=== PATIENT | female | born 1965 | race African-American/Black ===

== ENCOUNTER 2025-02-25 13:49 | Outpatient (CLI) | payer OTHER, SELFPAY ==
--- NOTE | 2025-02-25 14:30 | NEURO_ITS ---
Impression: # Known diabetic complains of balance difficulties. ? # Severe Neuropathy with neurogenic changes on Needle/ EMG exam. Nerve Conduction Studies ?Stim Site NR Peak (ms) P-T Amp (?V) Site1 Site2 Delta-P (ms) Dist (cm) Wai (m/s) Left Sup Fibular Anti Sensory (Ant Lat Mall)??? NO RESPONSE 14 cm NR 14 cm Ant Lat Mall 16.0 Right Sup Fibular Anti Sensory (Ant Lat Mall) 14 cm ? 1.0 9.5 14 cm Ant Lat Mall 1.0 16.0 160 Right Sural Anti Sensory (Lat Mall)??? NO RESPONSE Calf NR Calf Lat Mall 16.0 ?Stim Site NR Onset (ms) O-P Amp (mV) Site1 Site2 Delta-0 (ms) Dist (cm) Wai (m/s) Left Peroneal Motor (Vastus Med)??? NO RESPONSE Ankle NR Popit Ankle 0.0 Popit NR Right Peroneal Motor (Vastus Med) Ankle ? 4.5 0.4 Popit Ankle 12.1 41.0 34 Popit ? 16.6 0.1 Left Tibial Motor (Abd Gray Brev)??? NO RESPONSE Ankle NR Knee Ankle 0.0 Knee NR Right Tibial Motor (Abd Gray Brev)??? NO RESPONSE Ankle NR F Wave Studies ?NR F-Lat (ms) L-R F-Lat (ms) Left Peroneal (Mrkrs) (EDB)??? NO RESPONSE NR Right Peroneal (Mrkrs) (EDB)??? DISPERSED RESPONSE NR Left Tibial (Mrkrs) (Abd Hallucis)??? NO RESPONSE NR Right Tibial (Mrkrs) (Abd Hallucis)??? DISPERSED RESPONSE NR Electromyography ?Side Muscle Nerve Root Ins Act Fibs Amp Dur Recrt Comment Right AntTibialis Dp Br Fibular L4-5 Nml Nml Decr >12ms +3 Left AntTibialis Dp Br Fibular L4-5 Nml Nml Decr >12ms +3 Right Ext Dig Brev Dp Br Fibular L5, S1 Nml Nml Decr >12ms +4 Left Ext Dig Brev Dp Br Fibular L5, S1 Nml Nml Decr >12ms +4 Right Fibularis Long Sup Br Fibular L5-S1 Nml Nml Decr >12ms +3 Left Fibularis Long Sup Br Fibular L5-S1 Nml Nml Decr >12ms +3 Left Flex Dig Long Tibial L5-S2 Nml Nml Decr >12ms +3 Right Flex Dig Long Tibial L5-S2 Nml Nml Decr >12ms +3 Left Gastroc Tibial S1-2 Nml Nml Decr >12ms +3 Right Gastroc Tibial S1-2 Nml Nml Decr >12ms +3
--- OUTSIDE RECORDS SUMMARY | 2025-02-25 16:23 | XMS_ITS | Clinical Summary ---
Author Organization [facility] Address [address] [place] [address] Care Team Providers Care Timber Hewer Name Role Phone Unavailable Primary Care Provider Unavailabl e Source Comments [facility],non-owned Affiliates and Associated Physician Practices is amultiple site organization consisting of ambulatory clinics and hospital sitesin [place], [place], [place] and [place]. This disclosure is being madepursuant to the Care Everywhere program and may not contain all information available regarding this patient. Last updated 17.[employer] Allergies No known active allergies Medications * Be aware that medications may not be up to date on this document. Alwaysverify current medications with the patient. Blood Glucose Monitoring Suppl (Blood Glucose Monitor System) w/Device KITIndications :Diabetes Mellitus Use 1 Each as directed Reasons: Diabetes 1 Each 10/04/2024 11:12 AM CDT 5 Active blood glucose test stripIndicatio ns:Diabetes Mellitus Use 1 (one) strip 3 times daily Reasons: Diabetes 100 strip 1 10/04/2024 11:12 AM CDT 5 Active lancetsIndicat ions:Diabetes Mellitus Use 1 (one) Each 3 times daily Reasons: Diabetes 100 Each 1 10/04/2024 11:12 AM CDT 5 Active Insulin Pen Needle 32G X 4 MM MISCIndication s:Diabetes Mellitus Use 1 Each 4 times daily Reasons: Diabetes 100 Each 1 10/04/2024 11:12 AM CDT 5 Active aspirin (Aspirin) 81 MG chew tablet Take 1 (one) tablet by mouth once daily (chew and swallow) 30 tablet 10/04/2024 11:12 AM CDT 5 Active insulin glargine (Lantus/Semgle e) 100 units/mL pen Inject 4 (four) Units subcutaneously at bedtime 15 mL 10/04/2024 11:12 AM CDT 5 Active metFORMIN (Glucophage) 500 MG tablet Take 1 (one) tablet by mouth once daily 30 tablet 10/04/2024 11:12 AM CDT 5 Active rosuvastatin (Crestor) 40 MG tablet Take 1 (one) tablet by mouth once daily 30 tablet 10/04/2024 11:12 AM CDT 5 Active losartan (Cozaar) 25 MG tablet Take 1 (one) tablet by mouth once daily 30 tablet 10/04/2024 11:12 AM CDT 5 Active Active Problems Problem Noted Date Diagnosed Date Altered mental status, unspe cified altered mental status type 09/30/2024 Elevated troponin 09/30/2024 Assessment & Plan (10/04/2024 1:40 PM CDT): -etiology likely orthostasis since pt reporting decreased PO intake however cardiac etiology can not be ruled out -trops 127 > 251 > 2,000 > 2,345 > 2,337 - Echo: EF 54%, Severe LVH, Grade 1 DD, Bubble study negative PLAN: - Cardiology consulted, [facility] on 10/03 - no lesions - ASA 81mg started - Continue Rosuvastatin - fall precautions - PT/OT Assessment & Plan (10/03/2024 3:16 PM CDT): -etiology likely orthostasis since pt reporting decreased PO intake however cardiac etiology can not be ruled out -trops 127 > 251 > 2,000 > 2,345 > 2,337 - Echo: EF 54%, Severe LVH, Grade 1 DD, Bubble study negative PLAN: - Cardiology consulted, [facility] on 10/03 - ASA 81mg started - Coreg 6.25 BID - telemetry - fall precautions - PT/OT Assessment & Plan (10/02/2024 1:52 PM CDT): -etiology likely orthostasis since pt reporting decreased PO intake however cardiac etiology can not be ruled out -trops 127 > 251 > 2,000 > 2,345 > 2,337 - Echo: EF 54%, Severe LVH, Grade 1 DD, Bubble study negative PLAN: - Trend trop to peak, next at 7pm - Cardiology consulted, possible cath in morning - ASA 81mg started, load aspirin and start heparin drip if next trop elevated - telemetry - fall precautions - PT/OT Assessment & Plan (10/01/2024 4:13 PM CDT): -etiology likely orthostasis since pt reporting decreased PO intake however cardiac etiology can not be ruled out -trops 127 > 251 > 2,000 > 2,345 > - Echo: EF 54%, Severe LVH, Grade 1 DD, Bubble study negative PLAN: - Trend trop to peak, next at 7pm - Cardiology consulted, possible cath in morning - ASA 81mg started, load aspirin and start heparin drip if next trop elevated - telemetry - fall precautions - PT/OT Assessment & Plan (10/01/2024 3:27 AM CDT): -ACS unlikely given patient without chest pain and EKG showing no obvious ischemic findings -trops 127 > 251 PLAN: -telemetry -order lipid panel, A1c -order repeat EKG -trend trops to peak -consult Cards Acute cystitis with hematuria 09/30/2024 Essential hypertension 09/30/2024 Assessment & Plan (10/04/2024 1:40 PM CDT): -noncompliant with antiHTNs for > 1 year -PLAN: -restarted Losartan Assessment & Plan (10/03/2024 7:29 AM CDT): -noncompliant with antiHTNs for > 1 year -PLAN: -restart lisinopril once GEORGES resolves Assessment & Plan (10/02/2024 7:52 AM CDT): -noncompliant with antiHTNs for > 1 year -PLAN: -restart lisinopril once GEORGES resolves Assessment & Plan (10/01/2024 7:49 AM CDT): -noncompliant with antiHTNs for > 1 year -PLAN: -restart lisinopril once GEORGES resolves Assessment & Plan (09/30/2024 10:32 PM CDT): -noncompliant with antiHTNs for > 1 year -PLAN: -restart lisinopril once GEORGES resolves Slurred speech 09/30/2024 Assessment & Plan (10/04/2024 10:00 AM CDT): -per family onset 1.5 years; appears largely resolved on my evaluation. May also be related to episodes of hyperglycemia in setting of uncontrolled diabetes -CT head negative PLAN: -follow up with PCP Assessment & Plan (10/03/2024 7:29 AM CDT): -per family onset 1.5 years; appears largely resolved on my evaluation. May also be related to episodes of hyperglycemia in setting of uncontrolled diabetes -CT head negative PLAN: -follow up with PCP Assessment & Plan (10/02/2024 7:52 AM CDT): -per family onset 1.5 years; appears largely resolved on my evaluation. May also be related to episodes of hyperglycemia in setting of uncontrolled diabetes -CT head negative PLAN: -follow up with PCP Assessment & Plan (10/01/2024 7:49 AM CDT): -per family onset 1.5 years; appears largely resolved on my evaluation. May also be related to episodes of hyperglycemia in setting of uncontrolled diabetes -CT head negative PLAN: -follow up with PCP Assessment & Plan (09/30/2024 11:33 PM CDT): -per family onset 1.5 years; appears largely resolved on my evaluation. May also be related to episodes of hyperglycemia in setting of uncontrolled diabetes -CT head negative PLAN: -follow up with PCP Diabetes mellitus type 2, noninsulin dependent 0 09/30/2024 Assessment & Plan (10/04/2024 1:40 PM CDT): -reports noncompliant with home meds for > 1 year -no A1c on file -home med: Xigduo 5-1000mg -A1c 13.4% PLAN: -Will likely need discharged on long-acting and PO medications -start low dose (0-6 units) SSI TID AC -Will add 4U glargine at bedtime Assessment & Plan (10/03/2024 7:29 AM CDT): -reports noncompliant with home meds for > 1 year -no A1c on file -home med: Xigduo 5-1000mg -A1c 13.4% PLAN: -Will likely need discharged on long-acting and PO medications -start low dose (0-6 units) SSI TID AC -Will add 4U glargine once not NPO Assessment & Plan (10/02/2024 7:52 AM CDT): -reports noncompliant with home meds for > 1 year -no A1c on file -home med: Xigduo 5-1000mg -A1c 13.4% PLAN: -Will likely need discharged on long-acting and PO medications -start low dose (0-6 units) SSI TID AC -Will add 4U glargine once not NPO Assessment & Plan (10/01/2024 4:13 PM CDT): -reports noncompliant with home meds for > 1 year -no A1c on file -home med: Xigduo 5-1000mg -A1c 13.4% PLAN: -Will likely need discharged on long-acting and PO medications -start low dose (0-6 units) SSI TID AC -Will add 4U glargine once not NPO Assessment & Plan (09/30/2024 11:33 PM CDT): -reports noncompliant with home meds for > 1 year -no A1c on file -home med: Xigduo 5-1000mg PLAN: -order A1c -start low dose (0-6 units) SSI TID AC Acute kidney injury 09/30/2024 Assessment & Plan (10/04/2024 1:40 PM CDT): -likely related to prerenal etiology since patient admits to decreased PO intake lately -Cr 1.89 (baseline unknown) PLAN: -given LR bolus in ED, gentle IVF on 10/02 in preparation for C -trend renal panel at follow up Assessment & Plan (10/03/2024 7:29 AM CDT): -likely related to prerenal etiology since patient admits to decreased PO intake lately -Cr 1.89 (baseline unknown) PLAN: -given LR bolus in ED, gentle IVF on 10/02 in preparation for C -trend renal panel Assessment & Plan (10/02/2024 1:52 PM CDT): -likely related to prerenal etiology since patient admits to decreased PO intake lately -Cr 1.89 (baseline unknown) PLAN: -given LR bolus in ED, gentle IVF on 10/02 in preparation for C -trend renal panel Assessment & Plan (10/01/2024 7:49 AM CDT): -likely related to prerenal etiology since patient admits to decreased PO intake lately -Cr 1.89 (baseline unknown) PLAN: -given LR bolus in ED -trend renal panel Assessment & Plan (09/30/2024 10:45 PM CDT): -likely related to prerenal etiology since patient admits to decreased PO intake lately -Cr 1.89 (baseline unknown) PLAN: -given LR bolus in ED -trend renal panel Frequent falls 09/30/2024 Assessment & Plan (10/04/2024 1:40 PM CDT): -etiology unclear; possibly related to deconditioning vs orthostatsis vs cardiac -reports 3-4 falls this year Assessment & Plan (10/03/2024 7:29 AM CDT): -etiology unclear; possibly related to deconditioning vs orthostatsis vs cardiac -reports 3-4 falls this year PLAN: -fall precautions -PT/OT Assessment & Plan (10/02/2024 7:52 AM CDT): -etiology unclear; possibly related to deconditioning vs orthostatsis vs cardiac -reports 3-4 falls this year PLAN: -fall precautions -PT/OT Assessment & Plan (10/01/2024 7:49 AM CDT): -etiology unclear; possibly related to deconditioning vs orthostatsis vs cardiac -reports 3-4 falls this year PLAN: -fall precautions -PT/OT Assessment & Plan (10/01/2024 3:27 AM CDT): -etiology unclear; possibly related to deconditioning vs orthostatsis vs cardiac -reports 3-4 falls this year PLAN: -fall precautions -PT/OT Near syncope 09/30/2024 Assessment & Plan (10/04/2024 1:40 PM CDT): -etiology likely orthostasis since pt reporting decreased PO intake however cardiac etiology can not be ruled out -trops 127 > 251 > 2,000 > 2,345 > 2,337 - Echo: EF 54%, Severe LVH, Grade 1 DD, Bubble study negative PLAN: - Cardiology consulted, [facility] on 10/03 - no lesions - ASA 81mg started - Continue Rosuvastatin - fall precautions - PT/OT Assessment & Plan (10/03/2024 3:16 PM CDT): -etiology likely orthostasis since pt reporting decreased PO intake however cardiac etiology can not be ruled out -trops 127 > 251 > 2,000 > 2,345 > 2,337 - Echo: EF 54%, Severe LVH, Grade 1 DD, Bubble study negative PLAN: - Cardiology consulted, [facility] on 10/03 - ASA 81mg started - Coreg 6.25 BID - telemetry - fall precautions - PT/OT Assessment & Plan (10/02/2024 1:52 PM CDT): -etiology likely orthostasis since pt reporting decreased PO intake however cardiac etiology can not be ruled out -trops 127 > 251 > 2,000 > 2,345 > 2,337 - Echo: EF 54%, Severe LVH, Grade 1 DD, Bubble study negative PLAN: - Trend trop to peak, next at 7pm - Cardiology consulted, possible cath in morning - ASA 81mg started, load aspirin and start heparin drip if next trop elevated - telemetry - fall precautions - PT/OT Assessment & Plan (10/01/2024 4:13 PM CDT): -etiology likely orthostasis since pt reporting decreased PO intake however cardiac etiology can not be ruled out -trops 127 > 251 > 2,000 > 2,345 > - Echo: EF 54%, Severe LVH, Grade 1 DD, Bubble study negative PLAN: - Trend trop to peak, next at 7pm - Cardiology consulted, possible cath in morning - ASA 81mg started, load aspirin and start heparin drip if next trop elevated - telemetry - fall precautions - PT/OT Assessment & Plan (09/30/2024 11:33 PM CDT): -etiology likely orthostasis since pt reporting decreased PO intake however cardiac etiology can not be ruled out PLAN: -order orthostatics -given IV bolus -order continuous IV fluids x 12 hours -telemetry -fall precautions -order TTE with bubble -PT/OT Hyperglycemia 09/30/2024 Assessment & Plan (10/04/2024 1:40 PM CDT): -reports noncompliant with home meds for > 1 year -no A1c on file -home med: Xigduo 5-1000mg -A1c 13.4% PLAN: -Will likely need discharged on long-acting and PO medications -start low dose (0-6 units) SSI TID AC -Will add 4U glargine at bedtime Assessment & Plan (10/03/2024 7:29 AM CDT): -reports noncompliant with home meds for > 1 year -no A1c on file -home med: Xigduo 5-1000mg -A1c 13.4% PLAN: -Will likely need discharged on long-acting and PO medications -start low dose (0-6 units) SSI TID AC -Will add 4U glargine once not NPO Assessment & Plan (10/02/2024 7:52 AM CDT): -reports noncompliant with home meds for > 1 year -no A1c on file -home med: Xigduo 5-1000mg -A1c 13.4% PLAN: -Will likely need discharged on long-acting and PO medications -start low dose (0-6 units) SSI TID AC -Will add 4U glargine once not NPO Assessment & Plan (10/01/2024 4:13 PM CDT): -reports noncompliant with home meds for > 1 year -no A1c on file -home med: Xigduo 5-1000mg -A1c 13.4% PLAN: -Will likely need discharged on long-acting and PO medications -start low dose (0-6 units) SSI TID AC -Will add 4U glargine once not NPO Assessment & Plan (09/30/2024 11:33 PM CDT): -reports noncompliant with home meds for > 1 year -no A1c on file -home med: Xigduo 5-1000mg PLAN: -order A1c -start low dose (0-6 units) SSI TID AC HLD (hyperlipidemia) 09/30/2024 Assessment & Plan (10/04/2024 10:00 AM CDT): - Switched atorvastatin to Rosuvastatin per Cardiology Assessment & Plan (10/03/2024 7:29 AM CDT): - Switched atorvastatin to Rosuvastatin per Cardiology Assessment & Plan (10/02/2024 1:52 PM CDT): - Switched atorvastatin to Rosuvastatin per Cardiology Assessment & Plan (10/01/2024 7:49 AM CDT): -restart statin at 40mg Assessment & Plan (09/30/2024 10:48 PM CDT): -restart statin Social History Tobacco Use Types Packs/Day Years Used Date Smoking Tobacco: Never Smokeless Tobacco: Never Tobacco Cessation:Counseling Given: Not Answered Alcohol Use Standard Drinks/Week Comments Not Currently 0 (1 standard drink = 0.6 oz pur e alcohol) AUDIT-C Answer Date Recorded Q1: How often do you have a drink containing alc ohol? Monthly or less 10/04/2024 Q2: How many drinks containi ng alcohol do you have on a typical day when you are drinking? 1 or 2 10/04/2024 Q3: How often do you have si x or more drinks on one occasion? Never 10/04/2024 Comments No Sex and Gender Information Value Date Recorded Sex Assigned at Not on file Legal Sex Female 6:35 PM CDT Gender Identity Not on file Sexual Orientation Not on file Last Filed Vital Signs Vital Sign Reading Time Taken Comments Blood Pressure 145/83 10/04/2024 11:30 AM CDT Pulse 81 10/04/2024 11:30 AM CDT Temperature 36.3 C (97.4 F) 10/04/2024 11:30 AM CDT Respiratory Rate 18 10/04/2024 11:30 AM CDT Oxygen Saturation 100% 10/04/2024 11:30 AM CDT Inhaled Oxygen Concentration - - Weight 70.8 kg (156 lb) 10/01/2024 7:37 AM CDT Height 162.6 cm (5' 4) 10/01/2024 7:37 AM CDT Body Mass Index 26.78 10/01/2024 7:37 AM CDT Plan of Treatment Health Maintenance Due Date Last Done Comments COLOGUARD (AGES 45-75) - COLON CA SCREENING 1966 COLON MONITORING 1966 COLONOSCOPY - COLON CA SCREENING 1966 CT COLONOGRAPHY - COLON CA SCREENING 1966 Colorectal Cancer Screening 1966 FIT - COLON CA SCREENING 1966 FLEX SIG - COLON CA SCREENING 1966 MAMMOGRAM 1966 HIV SCREENING 1981 HEPATITIS C SCREENING 02/03/1984 DTAP/TDAP/TD VACCINES (1 - Tdap) 1985 HEPATITIS B VACCINE (1 of 3 - 19+ 3-dose series) 1985 PNEUMOCOCCAL VACCINE 50+ (1 of 2 - PCV) 1985 PAP SMEAR 1987 ZOSTER VACCINE (1 of 2) 02/08/2016 DEPRESSION SCREENING 03/12/2024 DIABETES - URINE PROTEIN SCREENING 03/12/2024 DIABETES RETINOPATHY SCREENING 09/30/2024 DIABETES-FOOT EXAM WITH MONOFILAMENT 09/30/2024 COVID-19 VACCINE ( season) 2024 INFLUENZA VACCINE (#1) 2024 DIABETES-HGB A1C 04/02/2025 09/30/2024 DIABETES-SERUM CREATININE 10/04/20252024, 10/03/2024, 10/02/2024, Additional history exists HIB VACCINE Aged Out No longer eligi ble based on patient's age to complete this topic HPV VACCINE Aged Out No longer eligi ble based on patient's age to complete this topic MENINGOCOCCAL (Group B) VACCINE SHARED DECISION-MAKING Aged Out No longer eligible based on patient's age to complete this topic MENINGOCOCCAL GROUPS A/C/Y/W VACCINE Aged Out No longer eligible based on patient's age to complete this topic Procedures Procedure Name Priority Date/Time Associated Diagnosis Comments RENAL FUNCTION PANEL AM Draw 10/04/2024 5:52 AM CDT Altered mental status, unspecified altered mental status type HEMOGLOBIN A1C CELSA 09/30/2024 9:56 PM CDT Altered mental status, unspecified altered mental status type from Last 3 Months or Most Recently Relevant to Health Maintenance Results * (ABNORMAL) RENAL FUNCTION PANEL (10/04/2024 5:52 AM CDT) BUN 16 7 - 26 mg/dL 10/04/2024 6:56 AM [facility] Creatinine 1.34(H) 0.56 - 0.96 mg/dL 10/04/2024 6:56 AM [facility] Sodium 140 136 - 145 mmol/L 10/04/2024 6:56 AM [facility] Potassium 4.1 3.5 - 4.5 mmol/L 10/04/2024 6:56 AM [facility] Chloride 108(H) 98 - 107 mmol/L 10/04/2024 6:56 AM [facility] CO2 23 22 - 29 mmol/L 10/04/2024 6:56 AM [facility] Glucose 174(H) 70 - 99 mg/dL 10/04/2024 6:56 AM [facility] Albumin 2.5(L) 3.4 - 5.0 g/dL 10/04/2024 6:56 AM [facility] Calcium 8.3(L) 8.4 - 10.2 mg/dL 10/04/2024 6:56 AM [facility] Phosphorus 3.2 2.9 - 5.1 mg/dL 10/04/2024 6:56 AM [facility] Anion Gap 9 6 - 16 10/04/2024 6:56 AM [facility] BUN/Creatinine Ratio 12 7 - 23 10/04/2024 6:56 AM [facility] Osmolality Calculated 295 275 - 295 mOsm/kg 10/04/2024 6:56 AM [facility] eGFR by CKD-EPI 46(L) >=90 mL/min/1.7 3 m2 10/04/2024 6:56 AM [facility] Comment:Estimated Glomerular Filtration Rate (eGFR) calculated using the CKD-EPI Creatinine Equation (2020), per the National Kidney Foundation and [place] Society of Nephrology recommendations. Blood BLOOD SPECIMEN / Unknown Lab Venipuncture / Unknown 10/04/2024 5:52 AM CDT 10/04/2024 6:23 AM CDT Ramos Morrison PA-C LAB - CHEMISTRY ORDERABLE S Final Result [address] [address], [facility] [phone] * (ABNORMAL) HEMOGLOBIN A1C (09/30/2024 9:56 PM CDT) Hemoglobin A1c 13.4(H) <=5.6 % 10/01/2024 8:42 AM [facility] Estimated Average Glucose 338 mg/dL 10/01/2024 8:42 AM [facility] Comment: HbA1c Interpretation: Normal : < 5.7% Pre-diabetes: 5.7-6.4% Diabetes: Equal to or greater than 6.5% Test results diagnostic of diabetes should be repeated for confirmation. Treatment target values recommended by ADA and other clinical organizations should be used to evaluate metabolic control in patients. Reference: [place] Diabetes Association, Standards of Care in Diabetes -2020 In patients 70 years and older consider HbA1c target range of 7.0-7.5% (Reference: Raymundo Arroyo et al. MINNIEDA. 2012) The Sebia assay for the measurement of HbA1c is a National Glycohemoglobin Standardization Program (NGSP) certified method. Blood BLOOD SPECIMEN / Unknown Venipuncture / Unknown 09/30/2024 9:56 PM CDT 09/30/2024 10:09 PM CDT Ramos Morrison PA-C LAB - CHEMISTRY ORDERABLE S Final Result [facility] [address] [place] [address], [facility] [phone] from Last 3 Months or Most Recently Relevant to Health Maintenance Insurance [employer] [facility] Address: [facility] [id number] [place] [address] Advance Directives * Full Code (Latest Code Status on File) Date Activated Date Inactivated Comments 09/30/2024 9:53 PM 10/04/2024 4:25 PM
--- OUTSIDE RECORDS SUMMARY | 2025-02-25 16:23 | XMS_ITS | Data Portability ---
Author Organization [facility], [employer] Address [address] [address] Assessment Encounter Date Assessment Date Assessment LastModified by Organization Details LastModified Time 12/17/2018 12/17/2018 Patient presente d for follow up. Studies ordered as below. Discussed plan with patient/caregiver , who expressed understanding. Follow up as noted below. [email or web address] Not available 12/17/2018 17:38:37 05/14/2019 05/14/2019 Patient presente d for follow up. Studies ordered as below. Discussed plan with patient/caregiver , who expressed understanding. Follow up as noted below. [email or web address] Not available 05/14/2019 18:11:56 05/19/2020 05/19/2020 Recommended healthy nutrition, including a diet rich in fruits and vegetables, minimizing simple carbohydrates, salt, and saturated fats. Encouraged regular cardiovascular exercise such as walking at least 30 minutes daily, 5 times per week. Emphasized preventive health measures and educated pt on fall prevention and community-based lifestyle interventions to help reduce health risks and promote healthy living. Not available 05/19/2020 17:34:29 10/14/2020 10/14/2020 Recommended healthy nutrition, including a diet rich in fruits and vegetables, minimizing simple carbohydrates, salt, and saturated fats. Encouraged regular cardiovascular exercise such as walking at least 30 minutes daily, 5 times per week. Emphasized preventive health measures and educated pt on fall prevention and community-based lifestyle interventions to help reduce health risks and promote healthy living. Not available 10/14/2020 17:27:41 Plan of Treatment Reminders Order Date Submit Date Provider Last Modified By Organization Details Last Modified Time Details Appointments None recorded. Lab [facility], [facility], [address], [address], [place], [address], 1 08:45:12 CK (creatine kinase), total, serum [facility], [address], [address], [place], [address], 1 08:45:11 microalbum in/creatin ine, mass ratio, urine 2020 [email or web address] Not available 08:16:31 HbA1c (hemoglobi n A1c), blood 2020 [facility], [address], [address], [place], [address], 1 08:16:31 C[facility], serum or [facility] [address], [address], [place], [address], 1 08:45:11 lipid panel, serum 2020 [facility] Not available 15:49:42 CK (creatine kinase), total, serum 2020 [facility] Not available 1 15:49:41 microalbum in/creatin ine, mass ratio, urine 2020 [facility] Not available 15:49:42 hemoglobin A1c, QN, blood 2020 [facility] Not available 15:49:40 CMP, serum or plasma 2020 [facility] Not available 15:49:41 hepatitis C Ab, serum 03/10/ 2021 03/10/2 021 [facility] Not available 1 15:49:40 lipid panel, serum 2019 020 [email or web address] 1 [facility], [address], [address], [place], [address], 0 11:35:19 CK (creatine kinase), total, serum 2019 020 [email or web address] 1 [facility], [address], [address], [place], [address], 0 11:35:19 HbA1c (hemoglobi n A1c), blood 2019 020 [email or web address] 1 [facility], [address], [address], [place], [address], 0 11:35:19 CMP, serum or plasma 2019 020 [email or web address] 1 [facility], [address], [address], [place], [address], 0 11:35:19 microalbum in/creatin ine, mass ratio, urine - -- with copy of report to Ophthalmol ogist Dr. Jason Barraza 2019 020 [email or web address] 1 [facility], [address], [address], [place], [address], 0 11:35:19 lipid panel, serum 2018 019 [email or web address] [facility], [address], [address], [place], [address], 9 08:47:28 HbA1c (hemoglobi n A1c), blood 2018 019 [email or web address] [facility], [address], [address], [place], [address], 9 08:47:28 CMP, serum or plasma 2018 019 lcallison [facility], [address], [address], [place], [address], 9 08:47:28 microalbum in/creatin ine, mass ratio, urine - -- with copy of report to Ophthalmol ogist Dr. Jason Barraza 2018 019 lcallison [facility], [address], [address], [place], [address], 9 08:47:27 lipid panel, blood - -- with copy of report to Ophthalmol ogist Dr. Jason Barraza 2018 019 lcallison [facility], [address], [address], [place], [address], 9 08:53:40 CK (creatine kinase), total, serum - -- with copy of report to Ophthalmol ogist Dr. Jason Barraza 2018 019 lcallison [facility], [address], [address], [place], [address], 9 08:53:40 hemoglobin A1c, QN, blood - -- with copy of report to Ophthalmol ogist Dr. Jason Barraza 2018 019 lcallison [facility], [address], [address], [place], [address], 9 08:53:40 CMP, serum or plasma - -- with copy of report to Ophthalmol ogist Dr. Jason Barraza 2018 019 lcallison [facility], [address], [address], [place], [address], 9 08:53:40 microalbum in/creatin ine, mass ratio, urine - -- with copy of report to Ophthalmol ogist Dr. Jason Barraza 2018 019 [email or web address] [facility], [address], [address], [place], [address], 9 08:53:[address] referral 2020 021 dbjohn Lowery MD, [address], [address], [place], [address], 18:03:42 optometris t referral 2020 021 [email or web address] 1 [facility], [address], [place], [address], 15:04:23 counseling referral 2020 021 1 Sonja Harris [employer]OP[employer], [address], [address], [place], [address], 15:04:[address] referral 2020 021 sebastian Lowery MD, [address], [address], [place], [address], 15:51:12 optometris t referral 2020 021 [facility], [address], [place], [address], 15:51:14 counseling referral 2020 021 sebastian Harris [employer]OP[employer], [address], [address], [place], [address], 15:51:[address] referral 2019 020 calvin Lowery MD, [address], [address], [place], [address], 0 08:47:04 diabetic ophthalmol ogy referral 2019 020 calvin Barraza MD, [address] [facility] , [address], [place], [address], 0 08:47:05 counseling referral 2019 020 calvin Harris [facility], [address], [address], [place], [address], 0 08:47:[address] referral 2018 019 calvin Lowery MD, [address], [address], [place], [address], 9 08:33:02 diabetic ophthalmol ogy referral 2018 019 calvin Barraza MD, [address] [facility] , [address], [place], [address], 9 08:33:03 counseling referral 2018 019 calvin Not available 9 08:33:[address] referral 2018 019 calvin Lowery MD, [address], [address], [place], [address], 9 08:40:28 diabetic ophthalmol ogy referral 2018 019 calvin Barraza MD, [address] [facility] , [address], [place], [address], 9 08:40:29 casino banker referral 2018 019 calvin Todd DPM, [address] [facility], [facility] [address], [place], [address], 9 08:40:30 Procedures None recorded. Surgeries None recorded. Imaging MAMMO, screening, digital, bilateral 2020 021 [facility] [place] [facility] Patient Access Centralized Scheduling, Centralized Scheduling, [address] [place], [address], 1 18:03:48 MAMMO, screening, digital, bilateral 2020 021 [email or web address] Not available 1 17:39:04 electrocar diogram 2020 [place] [facility], [facility], [facility] [place] [address], [place], [address], 1 14:05:26 electrocar diogram 2019 020 [place] [facility], [facility], [facility] [place] [address], [place], [address], 0 08:13:06 MAMMO, screening, digital, bilateral 2019 020 [email or web address] Not available 0 19:04:39 MAMMO, screening, digital, bilateral 2018 019 [email or web address] Not available 9 18:20:57 electrocar diogram 2018 019 [place] [facility], [facility], [facility] [place] [address], [place], [address], 9 12:46:36 XR, foot, 3 or more view - -- Please send copy of report to casino banker Dr. Anthony Todd. 2018 019 [email or web address] Not available 9 09:13:03 Medication Orders rosuvastat in 10 mg tablet 2020 021 [facility], [address] [place] [address], [address], 1 17:55:58 Xigduo XR 5 mg-1,000 mg tablet,ext ended release 2020 [facility], [address] [place], [address], 17:56:00 pioglitazo ne 30 mg tablet 2020 [facility], [address] [place] [address], [address], 17:55:58 Trulicity 0.75 mg/0.5 mL subcutaneo us pen injector 2020 [id number], [address] [place], [place], [id number], 17:55:54 Trulicity 1.5 mg/0.5 mL subcutaneo us pen injector 2020 [facility], [address] [place], [place], [id number], 17:55:55 rosuvastat in 10 mg tablet 2020 [facility], [address] [place] [address], [address], 17:35:16 lisinopril 20 mg tablet [address] [facility], [address] [place] [address], [address], 07:06:44 Xigduo XR 5 mg-1,000 mg tablet,ext ended release 2020 [facility], [address] [place] [address], [address], 17:35:19 pioglitazo ne 30 mg tablet 2020 [facility], [address] [place] [address], [address], 1 03:37:55 rosuvastat in 10 mg tablet 2019 [facility], [address] [place] [address], [address], 0 18:53:25 Xigduo XR 5 mg-1,000 mg tablet,ext ended release 2019 [facility], [address] [place] [address], [address], 0 18:53:27 pioglitazo ne 30 mg tablet 2019 [facility], [address] [place] [address], [address], 0 18:53:30 lisinopril 20 mg tablet [address] [facility], [address] [place] [address], [address], 1 07:06:44 rosuvastat in 10 mg tablet 2018 [facility], [address] [place] [address], [address], 9 18:14:51 Xigduo XR 5 mg-1,000 mg tablet,ext ended release 2018 019 [facility], [address] [place] [address], [address], 9 18:14:48 pioglitazo ne 30 mg tablet 2018 [facility], [address] [place] [address], [address], 9 18:14:58 lisinopril 20 mg tablet [address] [facility], [address] [place] [address], [address], 1 07:06:44 rosuvastat in 10 mg tablet 2018 019 [facility], [address] [place] [address], [address], 9 18:48:00 Xigduo XR 5 mg-1,000 mg tablet,ext ended release 2018 [facility], [address] [place] [address], [address], 9 18:48:01 pioglitazo ne 30 mg tablet 2018 019 [facility], [address] [place] [address], [address], 9 18:48:08 Ozempic 1 mg/dose (2 mg/1.5 mL) subcutaneo us pen injector [address] [facility], [address] [place] [address], [address], 1 17:48:46 citalopram 40 mg tablet 2018 019 [email or web address] [facility], [address] [place] [address], [address], 0 18:40:24 lisinopril 10 mg tablet 2018 019 [email or web address] [facility], [address] [place] [address], [address], 0 18:36:25 Patient TargetsNo targets recorded. Patient Instructions Encounter Date Encounter Id Patient Instructions Last Modified By Organization Details Last Modified Time 04/15/2018 [id number] high cholesterol : care instructions Not available 04/15/2018 18:47:54 advised to lose weight Not available 04/15/2018 18:47:54 type 2 diabetes: care instructions Not available 04/15/2018 18:47:54 learning about mood disorders Not available 04/15/2018 18:47:54 high blood pressure: care instructions Not available 04/15/2018 18:47:54 learning about high blood pressure Not available 04/15/2018 18:47:54 12/17/2018 [id number] high cholesterol : care instructions Not available 12/17/2018 18:14:37 albumin-creatini n e ratio: about this test Not available 12/17/2018 18:14:37 advised to lose weight Not available 12/17/2018 18:14:37 05/14/2019 [id number] high cholesterol : care instructions [email or web address] Not available 05/14/2019 18:53:12 albumin-creatini n e ratio: about this test Not available 05/14/2019 18:53:12 advised to lose weight [email or web address] Not available 05/14/2019 18:53:12 05/19/2020 [id number] high cholesterol : care instructions Not available 05/19/2020 17:35:05 albumin-creatini n e ratio: about this test Not available 05/19/2020 17:35:04 advised to lose weight Not available 05/19/2020 17:35:05 10/14/2020 [id number] high cholesterol : care instructions Not available 10/14/2020 17:55:47 albumin-creatini n e ratio: about this test Not available 10/14/2020 17:55:47 advised to lose weight Not available 10/14/2020 17:55:47 Reason for Referral Duralumin Mechanic Referral for Sc reening for malignant neoplasm of cervix Referring Physician: Mayo Wynne, Internal Medicine, Encounter Date: 04/15/2018 Diabetic Ophthalmology Refer ral for Type 2 diabetes mellitus without complication Referring Physician: Letty Boston, Encounter Date: 04/15/2018 Heel Sewer Referral for Type 2 diabetes mellitus without complication Referring Physician: Letty Boston, Encounter Date: 04/15/2018 Duralumin Mechanic Referral for Sc reening for malignant neoplasm of cervix Referring Physician: Letty Boston, Encounter Date: 12/17/2018 Diabetic Ophthalmology Refer ral for Type 2 diabetes mellitus without complication Referring Physician: Letty Boston, Encounter Date: 12/17/2018 Counseling Referral for Depr essive disorder Referring Physician: Letty Boston, Encounter Date: 12/17/2018 Duralumin Mechanic Referral for Sc reening for malignant neoplasm of cervix Referring Physician: Letty Spring, Encounter Date: 05/14/2019 Diabetic Ophthalmology Refer ral for Type 2 diabetes mellitus without complication Referring Physician: Letty Spring, Encounter Date: 05/14/2019 Counseling Referral for Depr essive disorder Referring Physician: Letty Spring, Encounter Date: 05/14/2019 Duralumin Mechanic Referral for Sc reening for malignant neoplasm of cervix Referring Physician: Letty Boston, Encounter Date: 05/19/2020 Counseling Referral for Depr essive disorder Referring Physician: Letty Boston, Encounter Date: 05/19/2020 Clinical Biochemical Geneticist Referral for Typ e 2 diabetes mellitus without complication Referring Physician: Letty Boston, Encounter Date: 05/19/2020 Duralumin Mechanic Referral for Sc reening for malignant neoplasm of cervix Referring Physician: Letty Boston, Encounter Date: 10/14/2020 Counseling Referral for Depr essive disorder Referring Physician: Letty Boston, Encounter Date: 10/14/2020 Clinical Biochemical Geneticist Referral for Typ e 2 diabetes mellitus without complication Referring Physician: Letty Boston, Encounter Date: 10/14/2020 Results Created Date Observation Date Name Description Value Unit Range Abnormal Flag Note LastModifiedBy Organization Detail LastModifiedTime 03/16/1903/18/2018 lipid panel , serum cholesterol, total 291 mg/dL <200 high Not Available [facility] [address] [address] [place], [address], 03/18/2018 14:25:29 03/16/1903/18/2018 lipid panel , serum HDL cholesterol 51 mg/dL >50 normal Not Available [facility] [address] [place], [address], 03/18/2018 14:25:29 03/16/1903/18/2018 lipid panel , serum triglyceride s 119 mg/dL <150 normal Not Available [facility] [place] [address] [place], [address], 03/18/2018 14:25:29 03/16/1903/18/2018 lipid panel , serum LDL-choleste rol 214 mg/dL _(carlos manuel c) high LDL-C level s > or = 190 mg/dL may indic ate famil ial hyper angeline stero lemia (FH). Clini carlos manuel asses sment and measu remen t of blood lipid level s shoul d be consi dered for all first degre e relat mookie of patie nts with an FH diagn osis. For quest ions about testi ng for famil ial hyper angeline stero lemia , pleas e call [facility] at 1.866 .GENE .INFO . Coy pfeiffer T, et al. J Natio nal Lipid Assoc iatio n Recom menda tions for Patie nt-Ce ntere d Manag ement of Dysli pidem ia: Part 1 Journ al of Clini carlos manuel Lipid ology 2015; 9(2), 129-1 69. Refer ence range : <100 Jakob able range <100 mg/dL for prima ry preve ntion ; <70 mg/dL for patie nts with CHD or diabe tic patie nts with > or = 2 CHD risk facto rs. LDL-C is now calcu lated using the [facility] kins adan ross, which is a valid ated novel stephon torre than the Fried radha abelardo ion in the estim ation of LDL-C . Arlene ross SS et al. PREM. 2013; 310(1 9): 2061- 2068 (http ://ed ucati on.Qu estDi Communicado. com/f aq/FA Q164) Not Available [facility] [address] [address], [place], [address], 03/18/2018 14:25:29 03/16/1903/18/2018 lipid panel , serum chol/HDLC ratio 5.7 (calc ) <5.0 high Not Available [facility] [address] [address] [address], [place], [address], 03/18/2018 14:25:29 03/16/1903/18/2018 lipid panel , serum non HDL cholesterol 240 mg/dL _(carlos manuel c) <130 high Non-H DL level > or = 220 is very high and may indic ate debra ic famil ial hyper angeline stero lemia (FH). Clini carlos manuel asses sment and measu remen t of blood lipid level s shoul d be consi dered for all first -degr ee relat mookie of patie nts with an FH diagn osis. For patie nts with diabe allen plus 1 major ASCVD risk facto r, treat ing to a non-H DL-C goal of <100 mg/dL (LDL- C of <70 mg/dL ) is consi dered a thera peuti c optio n. Not Available [facility] [address] [address], [place], [address], 03/18/2018 14:25:29 03/16/1903/18/2018 CMP, serum or plasm a glucose 245 mg/dL 65-99 high Fasti ng refer ence inter jasmine For someo ne witho ut known diabe allen, a gluco se value >125 mg/dL indic ates that they may have diabe allen and this shoul d be confi rmed with a follo w-up test. Not Available [address], [address], 03/18/2018 14:25:29 03/16/1903/18/2018 CMP, serum or plasm a urea nitrogen (BUN) 12 mg/dL 7-25 normal Not Available [facility] [address], [address], 03/18/2018 14:25:29 03/16/1903/18/2018 CMP, serum or plasm a creatinine 0.97 mg/dL 0.50-1 .05 normal For patie nts >49 years of age, the refer ence limit for Creat inine is appro ximat deborah 13% highe r for peopl e ident ified as Afric an-Am rigoberto n. Not Available [address], [address], 03/18/2018 14:25:29 03/16/1903/18/2018 CMP, serum or plasm a eGFR non-afr. burkinan 67 mL/mi n/1.7 3m2 > or = 60 normal Not Available [address], [address], 03/18/2018 14:25:29 03/16/1903/18/2018 CMP, serum or plasm a eGFR 78 mL/mi n/1.7 3m2 > or = 60 normal Not Available [facility] [address], [address], 03/18/2018 14:25:29 03/16/1903/18/2018 CMP, serum or plasm a BUN/creatini ne ratio NOT APPLIC ABLE (calc ) 6-22 Not Available [facility] [address], [address], 03/18/2018 14:25:29 03/16/1903/18/2018 CMP, serum or plasm a sodium 138 mmol/ L 135-14 6 normal Not Available [address], [address], 03/18/2018 14:25:29 03/16/1903/18/2018 CMP, serum or plasm a potassium 4.2 mmol/ L 3.5-5. 3 normal Not Available [address], [address], 03/18/2018 14:25:29 03/16/1903/18/2018 CMP, serum or plasm a chloride 102 mmol/ L 98-110 normal Not Available [address], [address], 03/18/2018 14:25:29 03/16/1903/18/2018 CMP, serum or plasm a carbon dioxide 27 mmol/ L 20-32 normal Not Available [address], [address], 03/18/2018 14:25:29 03/16/1903/18/2018 CMP, serum or plasm a calcium 9.4 mg/dL 8.6-10 .4 normal Not Available [address], [address], 03/18/2018 14:25:29 03/16/1903/18/2018 CMP, serum or plasm a protein, total 7.3 g/dL 6.1-8. 1 normal Not Available [address], [address], 03/18/2018 14:25:29 03/16/1903/18/2018 CMP, serum or plasm a albumin 3.9 g/dL 3.6-5. 1 normal Not Available [address], [address], 03/18/2018 14:25:29 03/16/1903/18/2018 CMP, serum or plasm a globulin 3.4 g/dL_ (calc ) 1.9-3. 7 normal Not Available [address], [address], 03/18/2018 14:25:29 03/16/1903/18/2018 CMP, serum or plasm a albumin/glob ulin ratio 1.1 (calc ) 1.0-2. 5 normal Not Available [address], [address], 03/18/2018 14:25:29 03/16/1903/18/2018 CMP, serum or plasm a bilirubin, total 0.3 mg/dL 0.2-1. 2 normal Not Available [address], [address], 03/18/2018 14:25:29 03/16/1903/18/2018 CMP, serum or plasm a alkaline phosphatase 74 U/L 33-130 normal Not Available [facility] [address], [address], 03/18/2018 14:25:29 03/16/1903/18/2018 CMP, serum or plasm a AST 13 U/L 10-35 normal Not Available [address], [address], 03/18/2018 14:25:29 03/16/1903/18/2018 CMP, serum or plasm a ALT 10 U/L 6-29 normal Not Available [address], [address], 03/18/2018 14:25:29 03/16/1903/18/2018 CK (crea demetrius kinas e), total , serum creatine kinase, total 121 U/L 29-143 normal Not Available [address], [address], 03/18/2018 14:25:30 03/16/19 19 03/18/2018 micro album in/cr eatin ine, mass ratio , urine creatinine, random urine 404 mg/dL 20-275 high Verif ied by repea t kiran sis. Not Available [facility] [address] [place] [address] [place], [address], 03/18/2018 14:25:30 03/16/19 19 03/18/2018 micro album in/cr eatin ine, mass ratio , urine microalbumin 172.1 mg/dL see note: normal Refer ence Range : Refer ence Range Not estab lishe d Verif ied by repea t kiran sis. Not Available [facility] [address] [address] [address] , [place], [address], 03/18/2018 14:25:30 03/16/19 19 03/18/2018 micro album in/cr eatin ine, mass ratio , urine microalbumin /creatinine ratio, random urine 426 mcg/m g_cre at <30 high The ADA defin es abnor malit ies in album in excre tion as follo ws: Categ ory Resul t (mcg/ mg creat inine ) Viji l <30 Micro album inuri a 30-29 9 Clini carlos manuel album inuri a > OR = 300 The ADA recom mends that at least two of three speci mens colle cted withi n a 3-6 month perio d be abnor mal befor e consi xavi g a patie nt to be withi n a diagn ostic categ ory. Not Available [facility] [address] [place], [address], 03/18/2018 14:25:30 03/16/1903/18/2018 HbA1c (hemo globi n A1c), blood hemoglobin A1C 9.9 %_of_ total _HGB <5.7 high For someo ne witho ut known diabe allen, a hemog lobin A1c value of 6.5% or great er indic ates that they may have diabe allen and this shoul d be confi rmed with a follo w-up test. For someo ne with known diabe allen, a value <7% indic ates that their diabe allen is well contr olled and a value great er than or equal to 7% indic ates subop timal contr ol. A1c targe ts vanna d be indiv idual ized based on durat ion of diabe allen, age, comor bid condi tions , and other consi derat ions. Curre ntly, no conse nsus exist s alexis calloway use of hemog lobin A1c for diagn osis of diabe allen for child phill. Not Available [employer] [facility] [address] [place], [address], 03/18/2018 14:25:31 12/19/1912/18/2018 elect rocar diogr am Rate & Rhythm Not Available [facility], [address], [place], [address], 12/17/2018 17:39:11 12/19/19 19 12/18/2018 elect rocar diogr am QRS Not Available [place], [address], [place], [address], 12/17/2018 17:39:11 12/19/1912/18/2018 elect rocar diogr am [place] Interval Not Available [facility], [address], [place], [address], 12/17/2018 17:39:11 12/19/19 19 12/18/2018 elect rocar diogr am QRS Duration Not Available [facility], [place] [address], [place], [address], 12/17/2018 17:39:11 12/19/19 19 12/18/2018 elect rocar diogr am QT Interval Not Available [facility], [place] [address], [place], [address], 12/17/2018 17:39:11 12/19/19 19 12/18/2018 elect rocar diogr am Change from Previous EKG? Not Available [facility], [address] [place], [place], [address], 12/17/2018 17:39:11 12/19/19 19 12/18/2018 elect rocar diogr am Date of Last EKG Not Available [address], [place], [address], 12/17/2018 17:39:11 05/16/19 20 05/16/2019 elect rocar diogr am Rate & Rhythm Not Available [address] [place], [place], [address], 05/14/2019 18:42:06 05/16/19 20 05/16/2019 elect rocar diogr am QRS Not Available [address] [place], [place], [address], 05/14/2019 18:42:06 05/16/19 20 05/16/2019 elect rocar diogr am [place] Interval Not Available [facility], [address], [place], [address], 05/14/2019 18:42:06 05/16/19 20 05/16/2019 elect rocar diogr am QRS Duration Not Available [address] [place], [place], [address], 05/14/2019 18:42:06 05/16/19 20 05/16/2019 elect rocar diogr am QT Interval Not Available [address] [place], [place], [address], 05/14/2019 18:42:06 05/16/19 20 05/16/2019 elect rocar diogr am Change from Previous EKG? Not Available [place] [address] [facility] [address], [place], [address], 05/14/2019 18:42:06 05/16/19 20 05/16/2019 frank arenas am Date of Last EKG Not Available [employer], [employer] [facility] [address], [place], [address], 05/14/2019 18:42:06 05/20/19 21 05/19/2020 hemog lobin A1c, QN, blood HGBA1C 11.8 % 4.0-6. 0 high Testi ng Perfo rmed at: [facility] [address] [place] [address], [address] [place] [address] Phone : Fax: Not Available [facility] [employer] [place] [address] [place], [address], 05/20/2020 15:49:40 05/20/19 21 05/19/2020 hepat itis C Ab, serum hepatitis C antibody Negati ve negati ve Testi ng Perfo rmed at: [facility] [address] [place] [address], [address] [place] [address] Phone : Fax: Not Available [facility] [employer] [place] [address] [place], [address], 05/20/2020 15:49:40 05/20/19 21 05/19/2020 CMP, serum or plasm a glucose 327 mg/dL 74-99 high Not Available [employer] [place] [address] [place], [address], 05/20/2020 15:49:41 05/20/19 21 05/19/2020 CMP, serum or plasm a urea nitrogen, blood (BUN) 12 mg/dL 6-20 Not Available [facility] [employer] [place] [address] [place], [address], 05/20/2020 15:49:41 05/20/19 21 05/19/2020 CMP, serum or plasm a total bilirubin 0.2 mg/dL 0.0-1. 2 Not Available [place] [address] [place], [address], 05/20/2020 15:49:41 05/20/19 21 05/19/2020 CMP, serum or plasm a total protein 7.7 g/dL 6.6-8. 7 Not Available [place] [address] [place], [address], 05/20/2020 15:49:41 05/20/19 21 05/19/2020 CMP, serum or plasm a alanine aminotransfe rase (ALT) 9 U/L 0-33 Not Available [place] [address] [place], [address], 05/20/2020 15:49:41 05/20/19 21 05/19/2020 CMP, serum or plasm a alkaline phosphatase 108 U/L 40-130 Not Available [place] [address] [place], [address], 05/20/2020 15:49:41 05/20/19 21 05/19/2020 CMP, serum or plasm a aspartate aminotransfe rase (AST) 11 U/L 0-32 Not Available [place] [address] [place], [address], 05/20/2020 15:49:41 05/20/19 21 05/19/2020 CMP, serum or plasm a calcium 10.0 mg/dL 8.6-10 .2 Not Available [place] [address] [place], [address], 05/20/2020 15:49:41 05/20/19 21 05/19/2020 CMP, serum or plasm a albumin 4.1 g/dL 3.5-5. 2 Not Available [place] [address] [place], [address], 05/20/2020 15:49:41 05/20/19 21 05/19/2020 CMP, serum or plasm a CO2 30 mmol/ L 22-29 high Not Available [facility] [place] [address] [place] [facility] [place], [address], 05/20/2020 15:49:41 05/20/19 21 05/19/2020 CMP, serum or plasm a creatinine, serum 1.0 mg/dL 0.5-0. 9 high Not Available [facility] [place] [address] [place], [address], 05/20/2020 15:49:41 05/20/19 21 05/19/2020 CMP, serum or plasm a sodium, serum 140 mmol/ L 136-14 5 Not Available [facility] [address] [place], [address], 05/20/2020 15:49:41 05/20/19 21 05/19/2020 CMP, serum or plasm a potassium, serum 4.4 mmol/ L 3.5-5. 1 Not Available [facility] [address] [place], [address], 05/20/2020 15:49:41 05/20/19 21 05/19/2020 CMP, serum or plasm a chloride, serum 101 mmol/ L 98-107 Not Available [facility] [address] [place], [address], 05/20/2020 15:49:41 05/20/1905/19/2020 CMP, serum or plasm a eGFR 59 >59 low Persi stent reduc tion for 3 month s or more in an eGFR <60 mL/mi n/1.7 3 m2 defin es CKD. Patie nts with eGFR value s>/=6 0 mL/mi n/1.7 3 m2 may also have CKD if evide nce of persi stent protu juaquin peres is prese nt. Addit ional infor nick ross may be found at www.k doqi. org. Not Available [facility] [place] [address] [address], [place], [address], 05/20/2020 15:49:41 05/20/19 21 05/19/2020 CK (crea demetrius kinas e), total , serum creatine kinase 82 U/L 0-170 Not Available [facility] [place] [address] [place] [address], [place], [address], 05/20/2020 15:49:41 05/20/19 21 05/19/2020 lipid panel , serum trigylceride s 212 mg/dL 0-150 high Not Available [facility] [place] [address] [address], [place], [address], 05/20/2020 15:49:42 05/20/19 21 05/19/2020 lipid panel , serum cholesterol 325 mg/dL 0-200 high Not Available [facility] [place] [address] [address], [place], [address], 05/20/2020 15:49:42 05/20/19 21 05/19/2020 lipid panel , serum uhdl 57 mg/dL 45-65 Not Available [facility] [place] [address] [address], [place], [address], 05/20/2020 15:49:42 05/20/19 21 05/19/2020 lipid panel , serum LDL, calculated 226 mg/dL 0-100 high Not Available [facility] [place] [address] [place] [address], [place], [address], 05/20/2020 15:49:42 05/20/19 21 05/19/2020 lipid panel , serum LDL/HDL ratio 4 mg/dL 0-5 Not Available [facility] [place] [address] [place] [address], [place], [address], 05/20/2020 15:49:42 05/20/19 21 05/19/2020 lipid panel , serum VLDL 42.4 mg/dL 5.0-40 .0 high Not Available [facility] [place] [address] [place], [address], 05/20/2020 15:49:42 05/20/19 21 05/19/2020 lipid panel , serum cholesterol/ HDL ratio 5.70 0.00-5 .00 high Testi ng Perfo rmed at: [facility], [facility] [address] [facility], [address] [place] [address] Phone : [phone] Fax: Not Available [facility] [place] [address] [place], [address], 05/20/2020 15:49:42 05/20/19 21 05/19/2020 micro album in/cr eatin ine, mass ratio , urine urine microalbumin 308 mg/L 0-30 high Not Available [facility] [place] [address] [place], [address], 05/20/2020 15:49:42 05/20/19 21 05/19/2020 micro album in/cr eatin ine, mass ratio , urine urine creatinine 88.66 mg/dL Not Available [facility] [place] [address] [place], [address], 05/20/2020 15:49:42 05/20/19 21 05/19/2020 micro album in/cr eatin ine, mass ratio , urine urine microalbumin /creatinine ratio 347 mg/g_ creat inine 0-30 high Not Available [facility] [place] [address] [place], [address], 05/20/2020 15:49:42 05/21/19 21 05/20/2020 frank arenas am Rate & Rhythm Not Available [facility], [facility] [address] [place] [address] Dr [address], [place], [address], 05/19/2020 17:27:23 05/21/19 21 05/20/2020 elect rocar diogr am QRS Not Available [address] [place], [place], [address], 05/19/2020 17:27:23 05/21/19 21 05/20/2020 elect rocar diogr am [place] Interval Not Available [address], [place], [address], 05/19/2020 17:27:23 05/21/19 21 05/20/2020 elect rocar diogr am QRS Duration Not Available [address], [place], [address], 05/19/2020 17:27:23 05/21/19 21 05/20/2020 elect rocar diogr am QT Interval Not Available [address] [place], [place], [address], 05/19/2020 17:27:23 05/21/19 21 05/20/2020 elect rocar diogr am Change from Previous EKG? Not Available [address], [place], [address], 05/19/2020 17:27:23 05/21/19 21 05/20/2020 elect rocar diogr am Date of Last EKG Not Available [address], [place], [address], 05/19/2020 17:27:23 10/16/19 21 10/15/2020 HEMOG LOBIN A1C HGBA1C 10.1 % 4.0-6. 0 high Testi ng Perfo rmed at: [facility] [address] [facility], [address] [place] [address] Phone : Fax: Not Available [facility] [place] [address] [place], [address], 10/17/2020 08:45:10 10/16/19 21 10/15/2020 CMP (COMP REHEN SIVE METAB OLIC PANEL ) glucose 241 mg/dL 74-99 high Not Available [facility] [place] [address] [place], [address], 10/17/2020 08:45:11 10/16/19 21 10/15/2020 CMP (COMP REHEN SIVE METAB OLIC PANEL ) urea nitrogen, blood (BUN) 11 mg/dL 6-20 Not Available [facility] [place] [address] [place], [address], 10/17/2020 08:45:11 10/16/19 21 10/15/2020 CMP (COMP REHEN SIVE METAB OLIC PANEL ) total bilirubin 0.2 mg/dL 0.0-1. 2 Not Available [facility] [place] [address] [place], [address], 10/17/2020 08:45:11 10/16/1910/15/2020 CMP (COMP REHEN SIVE METAB OLIC PANEL ) total protein 7.3 g/dL 6.6-8. 7 Not Available [facility] [place] [address] [place], [address], 10/17/2020 08:45:11 10/16/19 21 10/15/2020 CMP (COMP REHEN SIVE METAB OLIC PANEL ) alanine aminotransfe rase (ALT) 9 U/L 0-33 Not Available [facility] [place] [address] [place], [address], 10/17/2020 08:45:11 10/16/1910/15/2020 CMP (COMP REHEN SIVE METAB OLIC PANEL ) alkaline phosphatase 105 U/L 40-130 Not Available [facility] [place] [address] [place], [address], 10/17/2020 08:45:11 10/16/19 21 10/15/2020 CMP (COMP REHEN SIVE METAB OLIC PANEL ) aspartate aminotransfe rase (AST) 10 U/L 0-32 Not Available [facility] [place] [address] [place], [address], 10/17/2020 08:45:11 10/16/19 21 10/15/2020 CMP (COMP REHEN SIVE METAB OLIC PANEL ) calcium 9.9 mg/dL 8.6-10 .2 Not Available [facility] [place] [address] [place], [address], 10/17/2020 08:45:11 10/16/19 21 10/15/2020 CMP (COMP REHEN SIVE METAB OLIC PANEL ) albumin 4.2 g/dL 3.5-5. 2 Not Available [facility] [place] [address] [place], [address], 10/17/2020 08:45:11 10/16/19 21 10/15/2020 CMP (COMP REHEN SIVE METAB OLIC PANEL ) CO2 26 mmol/ L 22-29 Not Available [facility] [place] [address] [place], [address], 10/17/2020 08:45:11 10/16/19 21 10/15/2020 CMP (COMP REHEN SIVE METAB OLIC PANEL ) creatinine, serum 1.0 mg/dL 0.5-0. 9 high Not Available [facility] [place] [address] [place], [address], 10/17/2020 08:45:11 10/16/19 21 10/15/2020 CMP (COMP REHEN SIVE METAB OLIC PANEL ) sodium, serum 140 mmol/ L 136-14 5 Not Available [facility] [place] [address] [place], [address], 10/17/2020 08:45:11 10/16/19 21 10/15/2020 CMP (COMP REHEN SIVE METAB OLIC PANEL ) potassium, serum 4.5 mmol/ L 3.5-5. 1 Not Available [facility] [place] [address] [place], [address], 10/17/2020 08:45:11 10/16/19 21 10/15/2020 CMP (COMP REHEN SIVE METAB OLIC PANEL ) chloride, serum 102 mmol/ L 98-107 Not Available [facility] [place] [address] [place], [address], 10/17/2020 08:45:11 10/16/1910/15/2020 CMP (COMP REHEN SIVE METAB OLIC PANEL ) eGFR 60 >59 Persi stent reduc tion for 3 month s or more in an eGFR <60 mL/mi n/1.7 3 m2 defin es CKD. Patie nts with eGFR value s>/=6 0 mL/mi n/1.7 3 m2 may also have CKD if evide nce of persi stent protu niuri a is prese nt. Addit ional infor nick ross may be found at www.k doqi. org. Not Available [facility] [place] [address] [address] [place], [address], 10/17/2020 08:45:11 10/16/1910/15/2020 CREAT INE KINAS E (CPK) creatine kinase 82 U/L 0-170 Not Available [facility] [place] [address] [address] [place], [address], 10/17/2020 08:45:11 10/16/1910/15/2020 LIPID PANEL trigylceride s 167 mg/dL 0-150 high Not Available [facility] [place] [address] [address] [place], [address], 10/17/2020 08:45:12 10/16/19 21 10/15/2020 LIPID PANEL cholesterol 245 mg/dL 0-200 high Not Available [facility] [place] [address] [place], [address], 10/17/2020 08:45:12 10/16/19 21 10/15/2020 LIPID PANEL uhdl 59 mg/dL 45-65 Not Available [place] [address] [place], [address], 10/17/2020 08:45:12 10/16/19 21 10/15/2020 LIPID PANEL LDL, calculated 153 mg/dL 0-100 high Not Available [place] [address] [place], [address], 10/17/2020 08:45:12 10/16/19 21 10/15/2020 LIPID PANEL LDL, measured 167 mg/dL <99 high Not Available [place] [address] [place], [address], 10/17/2020 08:45:12 10/16/19 21 10/15/2020 LIPID PANEL LDL/HDL ratio 3 mg/dL 0-5 Not Available [facility] [place] [address] [place], [address], 10/17/2020 08:45:12 10/16/19 21 10/15/2020 LIPID PANEL VLDL 33.4 mg/dL 5.0-40 .0 Not Available [place] [address] [place], [address], 10/17/2020 08:45:12 10/16/19 21 10/15/2020 LIPID PANEL cholesterol/ HDL ratio 4.15 0.00-5 .00 Not Available [facility] [place] [address] [place], [address], 10/17/2020 08:45:12 10/23/1910/22/2020 URINE MICRO ALBUM IN/CR EATIN INE RATIO urine microalbumin 114 mg/L 0-30 high Not Available [facility] [place] [address] [place], [address], 10/23/2020 15:44:55 10/23/19 21 10/22/2020 URINE MICRO ALBUM IN/CR EATIN INE RATIO urine creatinine 41.78 mg/dL 28.00- 217.00 Not Available [facility] [address] [place], [address], 10/23/2020 15:44:55 10/23/19 21 10/22/2020 URINE MICRO ALBUM IN/CR EATIN INE RATIO urine microalbumin /creatinine ratio 272 mg/g_ creat inine 0-30 high Not Available [facility] [address] [place], [address], 10/23/2020 15:44:55 12/19/19 19 12/17/2018 elect rocar diogr am No observ ation record ed. rafat [facility], [place] [address], [place], [address], 12/18/2018 12:46:55 05/16/19 20 05/14/2019 elect rocar diogr am No observ ation record ed. rafat [facility], [place] [address] [facility] [address], [place], [address], 05/16/2019 10:27:27 05/21/19 21 elect rocar diogr am No observ ation record ed. rafat Not Available 2020 14:05:45 06/01/19 21 05/31/2020 , [facility] ardio gram No observ ation record ed. calvin [facility], [place] [address] [place], [place], [address], 05/31/2020 11:09:02 Result Notes None recorded. Problems Name Problem SNOMED Code Status Onset Date Resolution Date Notes Provider Name and Address Organization Details Recorded Time Diabetes mellitus 36953529 Active 2016 ROBERT Sandoval - [facility] 7 11:52:49 Hyperlipidemia 54625038 Active 2016 [facility] Carin ford [facility] 7 11:53:00 Benign hypertension 83375464 Active 2016 Tanyaja ford [facility] 7 11:53:09 Noncompliance with treatment 4053610 Active 2016 [facility] Carin ford [facility] 7 11:53:21 Obesity 381537865 Active 2016 [facility] Carin ford [facility] 7 11:53:27 Problem Notes None recorded. Procedures Surgical History Date Name Laterality Status Provider Name and Address Organization Details Recorded Time 08/27/19 Cataract Surgery completed [facility] 05/19/2020 16:45:46 05/28/19 cataract surgery completed [facility] 05/19/2020 16:45:24 02/08/20 18 Diabetic Foot Exam completed MD Dmitriy [place] [address], [place], [address], [facility] 2018 18:28:14 07/11/19 18 Date of Last Pap Smear completed [facility] 2018 17:57:16 04/19/19 18 Date of Last Colonoscopy completed [facility] 07/12/2017 17:26:25 04/19/19 18 Colonoscopy completed MD Dmitriy [place] [address], [place], [address], [facility] 04/22/2017 16:15:52 12/17/19 17 Date of Last Mammogram completed [facility] 03/26/2017 20:02:46 Tubal Ligation completed MD Dmitriy [place] [address], [place], [address], [facility] 07/12/2017 17:45:11 Breast Surgery completed MD Dmitriy [place] [address], [place], [address], [facility] 07/12/2017 17:45:33 Imaging Results None recorded. Procedure Notes None recorded. Medical Equipment None Reported. Allergies No known drug allergies Medications Name Sig Start Date Stop Date Status Note LastModified by Organization Details LastModified Time cyclobenz aprine 10 mg tablet 10/15 completed Not Available Not Available Not Available metformin 500 mg tablet Take 1 tablet twice a day by oral route. 11/28 completed -- changed to [employer] Not Available Not Available Not Available citalopra m 40 mg tablet 1 tab taken at 4 pm daily 05/13 completed Not Available Not Available Not Available hydrocodo ne 5 mg-acetam inophen 325 mg tablet 05/23 completed Not Available Not Available Not Available FreeStyle Lancets 28 gauge active Not Available Not Available Not Available lisinopri l 20 mg tablet Take 1 tablet every day by oral route. 10/25 completed -- increase d to 40 mg daily Not Available Not Available Not Available aspirin 81 mg tablet,de layed release Take 1 tablet every day by oral route. active Not Available Not Available No t Available lisinopri l 10 mg tablet Take 1 tablet every day by oral route. 05/13 completed Not Available Not Available Not Available lisinopri l 5 mg tablet Take 1 tablet every day by oral route. 11/28 completed -- increase d to 10 mg qd Not Available Not Available Not Available ibuprofen 600 mg tablet 10/15 completed Not Available Not Available Not Available pioglitaz one 30 mg tablet Take 1 tablet every day by oral route. 2020 active Not Available Not Available Not Avai lable lisinopri l 40 mg tablet Take 1 tablet every day by oral route in the evening. active Not Available Not Available No t Available Blood Glucose Test strips twice daily testing 05/23 completed Not Available Not Available Not Available rosuvasta tin 10 mg tablet Take 1 tablet every day by oral route. 2020 active Not Available Not Available Not Avai lable rosuvasta tin 20 mg tablet Take 1 tablet every day by oral route. active Not Available Not Available No t Available aspirin 11/28 completed -- duplicat e Not Available Not Available Not Available Besivance 0.6 % eye drops,daphne pension 05/23 completed Not Available Not Available Not Available Prolensa 0.07 % eye drops INSTILL 1 DROP INTO LEFT EYE TWICE DAILY 05/23 completed Not Available Not Available Not Available Farxiga 10 mg tablet Take 1 tablet every day by oral route. 11/28 completed -- changed to Xigduo Not Available Not Available Not Available Trulicity 1.5 mg/0.5 mL subcutane ous pen injector Inject 1.5 mL every week by subcutan eous route. 2020 active Not Available Not Available Not Avai lable Trulicity 0.75 mg/0.5 mL subcutane ous pen injector 1 shot once a week active Not Available Not Available No t Available Xigduo XR 5 mg-1,000 mg tablet,ex tended release Take 1 tablet twice a day by oral route. active Not Available Not Available No t Available Ozempic 1 mg/dose (2 mg/1.5 mL) subcutane ous pen injector 0.25 mg SC qwk x4wk, then incr. to 0.5 mg qwk x4wk, then may incr. to 1 mg qwk; Max: 1 mg/wk; Info: give doses >48h apart 10/14 completed -- pt reported that it is not covered Not Available Not Available Not Available Inveltys 1 % eye drops,dapnhe pension INSTILL 1 DROP INTO LEFT EYE TWICE DAILY 10/14 completed Not Available Not Available Not Available Vitals Date Recorded Body height Body mass index (BMI) Body weight Respiratory rate Heart rate Systolic And Diastolic Provider Name and Address Organization Details Last Updated DateTime 9 162.56 cm 29.7 kg/m2 20113.4 8 g 16 /min 82 /min 160/89 mm[Hg] Tanya Del Rosario [facility] 9 18:32:11 Date Recorded Systolic And Diastolic Provider Name and Address Organization Details Last Updated DateTime 05/14/2019 150/88 mm[Hg] Deniz Mendoza [facility] 05/14/2019 18:47:58 Date Recorded Body height Heart rate Respiratory rate Body temperature Body mass index (BMI) Body weight Provider Name and Address Organization Details Last Updated DateTime 0 162.56 cm 76 /min 20 /min 97.3 [degF] 30.6 kg/m2 57113.4 4 g Wen Ba [facility] 0 18:21:39 Date Recorded Body height Body mass index (BMI) Body weight Body temperature Respiratory rate Heart rate Systolic And Diastolic Provider Name and Address Organization Details Last Updated DateTime 1 162.56 cm 30 kg/m2 55776.6 6 g 97.8 [degF] 16 /min 79 /min 156/79 mm[Hg] Berna Loco [facility] 1 16:44:35 Date Recorded Body height Body mass index (BMI) Body weight Body temperature Respiratory rate Heart rate Systolic And Diastolic Provider Name and Address Organization Details Last Updated DateTime 1 162.56 cm 29.4 kg/m2 37726.3 g 98.4 [degF] 16 /min 78 /min 134/78 mm[Hg] Mya Perez od [facility] 1 16:46:58 Date Recorded Body height Heart rate Respiratory rate Body temperature Body mass index (BMI) Body weight Systolic And Diastolic Provider Name and Address Organization Details Last Updated DateTime 9 162.56 cm 88 /min 20 /min 97.3 [degF] 30.9 kg/m2 09361.6 3 g 174/87 mm[Hg] Gricel Rey [facility] 9 17:42:54 Social History Question Answer Notes LastModified by Organizat ion Details LastModified Time Tobacco Smoking Status Never Smoker Not Available [employer] 12/26/2019 03:12:13 Do You Have An Advance Directive? No [id number] Information not available 12/26/2019 What Is Your Level Of Caffeine Consumption? Occasional Information not available 10/14/2020 How Much Tobacco Do You Chew? None [id number] Information not available 12/26/2019 What Is Your Code Status? Full Code [id number] Information not available 12/26/2019 What Type Of Diet Are You Following? REGULAR [id number] Information not available 12/26/2019 Which Illicit Or Recreational Drugs Have You Used? None [id number] Information not available 12/26/2019 Marital Status [email or web address] Informatio n not available 11/28/2016 What Was The Date Of Your Most Recent Tobacco Screening? 10/14/2020 Information not available 10/14/2020 Seat Belts Used Routinely Yes Information not available 05/19/2020 Smoke Alarm In Home Yes Information not available 05/19/2020 How Much Tobacco Do You Smoke? No [id number] Information not available 12/26/2019 How Many Years Have You Smoked Tobacco? 0 [id number] Information not available 12/26/2019 Sex: Unknown Functional Status Question Answer Note LastModified by Organizat ion Details LastModified Time What is your level of alcohol consumption? None [id number] Information not available 12/26/2019 Do you or have you ever used smokeless tobacco? 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 Never used electronic cigarettes Information not available 05/19/2020 What is your exercise level? Occasional [id number] Information not available 12/26/2019 Mental Status None recorded. Family History Relationship Description Onset Age of this Age Resolved Age Notes LastModified by Organization Details LastModified Time Mother Diabetes mellitus Not available 2017 17:46:11 Maternal Grandmother Diabetes mellitus Not available 2017 17:46:11 Paternal Grandmother Diabetes mellitus Not available 2017 17:46:11 Maternal Grandfather Diabetes mellitus Not available 2017 17:46:11 Maternal Grandfather Myocardial infarction -- dx'd at around 67 y/o Not available 07/12/2017 17:46:39 Notes:-- No family history f or cancers Medical History No medical history recorded. Gynecological History Statement/Question Response Date of Last Pap Smear 07/10/2017 Date of Last Mammogram 12/16/2016 Date of Last Colonoscopy 04/19/2017 Obstetrics History GPAL:G 0 P 0 0 0 0 Immunizations Vaccine Type Date Status Note Provider Nam e and Address Organization Details Recorded Time Influenza, split virus, quadrivalent , PF 9 cancelled patient objection Not Available [facility] 03/29/2019 02:27:56 Past Encounters Encounter ID Performer Location Encounter Start Date Encounter Closed Date Diagnosis/Indication Diagnosis SNOMED-CT Code Diagnosis ICD10 Code Diagnosis IMO Codes Diagnosis Note [id number] Mayo Wynne MD [facility] [address] ,[address] [address] 11/28/2016 11:15:28 11/28/2016 12:57:08 Benign essential hypertension 2217170 I10 Type 2 chuyita betes mellitus without complication 657876288 E11.9 Hyperlipidemia 32472951 E78.5 Body mass index 30+ - obesity 203430256 Z68.30 -- advised weight loss-- pt's BMI today is 30.2 (ideal is between 20-25) Noncomplia nce with treatment 1835436 Z91.19 -- pt counseled Screening for malignant neoplasm of colon 360433324 Z12.11 Screening for malignant neoplasm of breast 834127616 Z12.31 Screening for malignant neoplasm of cervix 952463997 Z12.4 Active or passive immunization 838444383 Z23 Antiplatel et agent therapy 677536796 Z79.02 [id number] Mayo Wynne MD [facility] [address] [place] [address] ,[address] [place] [address] 03/26/2017 18:45:18 03/26/2017 20:47:45 Adult health examination 399032147 Z00.00 Type 2 chuyita betes mellitus without complication 008018584 E11.9 Benign ess ential hypertension 4825735 I10 -- missed meds yesterday; will not adjust meds. 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 Adam Cox in the beginning of 2016 Active or passive immunization 328668813 Z23 -- Patient does not want to have flu shot; she will let me know when she changes her mind. Antiplatel et agent therapy 314664559 Z79.02 [id number] Mayo Wynne MD [facility] [address] [facility] ,[address] [address] 04/23/2017 12:01:43 04/23/2017 14:06:34 Type 2 diabetes mellitus without complication 945695811 E11.9 -- check lab(s) today 04/23/17 Benign ess ential hypertension 2047690 I10 -- missed meds yesterday; will not adjust meds.-- check lab(s) today 04/23/17 Hyperlipidemia 62187739 E78.5 -- check lab(s) today 04/23/17 Body mass index 30+ - obesity 672517635 Z68.30 -- advised weight loss; pt lost 2 # since her last visit-- pt's BMI today is 29 (ideal is between 20-25) Noncomplia nce with treatment 7774227 Z91.19 -- pt counseled Screening for malignant neoplasm of colon 818227545 Z12.11 -- Gastroente rologist Dr. 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 Adam Cox in the beginning of 2016 Active or passive immunization 768958385 Z23 -- Patient still does not want to have flu shot; she will let me know when she changes her mind. Antiplatel et agent therapy 117654920 Z79.02 Depressive disorder 7338 7711 F32.9 (acute stress -- mother in Dec 2016) [id number] Mayo Wynne MD [facility] [address] [facility] [address] [place] [address] 07/12/2017 15:57:23 07/12/2017 18:03:31 Type 2 diabetes mellitus without complication 127850091 E11.9 -- recheck lab(s) today 07/24/17 Benign ess ential hypertension 3737058 I10 -- missed meds yesterday; will not adjust meds.-- check lab(s) today 04/23/17 Hyperlipidemia 30400703 E78.5 -- recheck lab(s) today 07/24/17 Body mass index 30+ - obesity 991197793 Z68.30 -- advised weight loss; pt gained 3 # since her last visit-- pt's BMI today is 29.5 (ideal is between 20-25) Depressive disorder 3548 9007 F32.9 (acute stress -- mother in Dec 2016) Noncomplia nce with treatment 2369792 Z91.19 -- pt counseled Screening for malignant neoplasm of colon 257693812 Z12.11 -- Stool globin negative for occult blood on 04/30/17-- Gastroente rologist Dr. 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 Adam Cox in the beginning of 2016 Active or passive immunization 466926890 Z23 -- Patient still does not want to have flu shot; she will let me know when she changes her mind. Antiplatel et agent therapy 243694405 Z79.02 -- Patient is currently taking over-the-c ounter aspirin 81 mg one tablet daily Left flank pain 91537871 9 R10.9 (improved 90% since urgent care visit) [id number] Mayo Wynne MD [facility] [address] [place] [address] 10/15/2017 17:55:08 10/15/2017 20:14:02 Type 2 diabetes mellitus without complication 282420904 E11.9 -- recheck lab(s) tomorrow 10/16/17 Benign ess ential hypertension 2179884 I10 -- missed meds yesterday; will not adjust meds.-- recheck lab(s) tomorrow 10/16/17 Hyperlipidemia 86916678 E78.5 -- recheck lab(s) tomorrow 10/16/17 Left flank pain 62393449 9 R10.9 (improved 90% since urgent care visit) -- Resolved completely Body mass index 30+ - obesity 601248553 Z68.30 -- advised weight loss; pt gained 2 # since her last visit-- pt's BMI today is 29.5 (ideal is between 20-25) Depressive disorder 3548 9007 F32.9 (acute stress -- mother in Dec 2016) Antiplatel et agent therapy 128866497 Z79.02 -- Patient is currently taking over-the-c ounter aspirin 81 mg one tablet daily Noncomplia nce with treatment 3143955 Z91.19 -- pt counseled Active or passive immunization 614761236 Z23 -- Patient still does not want to have flu shot; she will let me know when she changes her mind. Screening for malignant neoplasm of colon 311294328 Z12.11 -- Stool globin negative for occult blood on 04/30/17-- Gastroente rologist Dr. 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 Adam Cox in the beginning of 2017 [id number] Mayo Wynne MD [facility] [address] [facility] [place] ,[address] [address] 2018 16:49:38 2018 18:35:42 Type 2 diabetes mellitus without complication 228931344 E11.9 -- Ordered labs to be done on 10/16/17 but pt has not done labs since 04/30/17-- recheck lab(s) within 2 days from 02/07/18 Benign ess ential hypertension 1595604 I10 -- recheck lab(s) within 2 days from 02/07/18 Hyperlipidemia 65894631 E78.5 -- recheck lab(s) within 2 days from 02/07/18 Body mass index 30+ - obesity 995422454 Z68.30 -- advised weight loss; pt gained 5 # since her last visit-- pt's BMI today is 30.7 (ideal is between 20-25) Depressive disorder 2438 9007 F32.9 (acute stress -- mother in Dec 2016) Left flank pain 97488843 9 R10.9 (improved 90% since urgent care visit) -- Resolved completely Antiplatel et agent therapy 220476130 Z79.02 -- Patient is currently taking over-the-c ounter aspirin 81 mg one tablet daily Noncomplia nce with treatment 8587635 Z91.19 -- pt counseled Active or passive immunization 408257866 Z23 -- Patient still does not want to have flu shot; she will let me know when she changes her mind. Screening for malignant neoplasm of colon 931813549 Z12.11 -- Stool globin negative for occult blood on 04/30/17-- Gastroente rologist Dr. 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 Adam Cox in the beginning of 2016 Pain of right heel 00135 60996 031907 M79.671 (right plantar heel pain when apply pressure w/ my hand) [id number] Mayo Wynne MD [facility], [facility] [address] [facility] [place] ,[address] [address] 04/15/2018 15:31:14 04/15/2018 18:53:17 Type 2 diabetes mellitus without complication 620862438 E11.9 -- Ordered labs to be done on 10/16/17 but pt has not done labs since 04/30/17-- recheck lab(s) on 06/15/18 Benign ess ential hypertension 6176935 I10 -- still missing Meds and BP is uncontroll ed; pt advised-- recheck lab(s) on 06/15/18 Hyperlipidemia 73320737 E78.5 -- still missing meds; pt advised -- recheck lab(s) on 06/15/18 Pain of right heel 92721 79557 615919 M79.671 (right plantar heel pain when apply pressure w/ my hand) -- will re-order foot xrays Depressive disorder 0951 3594 F32.9 (acute stress -- mother in Dec 2016) Antiplatel et agent therapy 264427300 Z79.02 -- Patient is currently taking over-the-c ounter aspirin 81 mg one tablet daily Noncomplia nce with treatment 0414262 Z91.19 -- pt counseled Active or passive immunization 171955544 Z23 -- Patient still does not want to have flu shot; she will let me know when she changes her mind. Screening for malignant neoplasm of colon 158384498 Z12.11 -- Stool globin negative for occult blood on 04/30/17-- Gastroente rologist Dr. 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 Adam Cox in the beginning of 2016 Body mass index 25-29 - overweight 642173413 Z68.29 -- advised weight loss; pt lost 6 # since her last visit -- pt's BMI today is 29.7 (ideal is between 20-25) [id number] Mayo Wynne MD [facility] [facility] [place] ,[address] [address] 12/17/2018 16:57:59 12/17/2018 18:20:19 Noncompliance with treatment 9396998 Z91.19 -- pt counseledL ast refill of Lisinopril # 30, Pioglitazo ne # 30, Rosuvastat in 10 mg #30 and Xigduo# 30 was 2018 -- Never filled Ozempic Type 2 chuyita betes mellitus without complication 281328371 E11.9 A1C was 9.9 on 03/16/2018 Pt didnt do any blood test or f/u sinceHave not had any medicine since 03/09/2018 -- recheck lab(s) within 2 days from 12/17/18 Benign ess ential hypertension 8323120 I10 Have not take BP med since 03/09/2018 -- will increase Lisinopril frok 10 mg to 20 mg daily.-- schedule free courtsey nursing BP check in 3 weeks.-- recheck lab(s) within 2 days from 12/17/18 Hyperlipidemia 01848416 E78.5 --LDL 214, HDL 51 and Trig 119 on 03/16/2018 Body mass index 25-29 - overweight 506250853 Z68.29 -- advised weight loss; pt gained 7 # since her last visit -- pt's BMI today is 29.7 (ideal is between 20-25) Depressive disorder 3548 9007 F32.9 (acute stress -- mother in Dec 2016).Arabella lopram was filled # 30 on 07/27/2017 -- refer pt to [facility] Microalbuminuria 4674906 06 R80.9 -- recheck lab(s) within 2 days from 12/17/18 Antiplatel et agent therapy 000508203 Z79.02 -- Patient is currently taking over-the-c ounter aspirin 81 mg one tablet daily Active or passive immunization 559968263 Z23 -- Patient still does not want to have flu shot; she will let me know when she changes her mind. Screening for malignant neoplasm of colon 677341149 Z12.11 -- Stool globin negative for occult blood on 04/30/17-- Gastroente rologist Dr. 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 Adam Cox 07/10/2017 [id number] DENIZ MENDOZA APN [facility] [address] [facility] ,[address] [address] 05/14/2019 18:05:56 05/14/2019 19:04:39 Noncompliance with treatment 0286088 Z91.19 pt reports she never was prescribed actos ---- although was sent 12/17/18 Type 2 chuyita betes mellitus without complication 419431774 E11.9 A1C 9.9 03/16/18 --recheck labs 06/15/19 - Benign ess ential hypertension 2434933 I10 -- forgot to take lisinopril today --- pt reports she has been compliant with medication sEKG - 12/18/18 Hyperlipidemia 96748831 E78.5 --LDL 214, HDL 51 and Trig 119 on 03/16/2018 recheck around 06/15/19 Body mass index 25-29 - overweight 857869024 Z68.29 Depressive disorder 3548 9007 F32.9 (acute stress -- mother in Dec 2016).-- refer pt to [facility] not been taking citalopram Microalbuminuria 3289418 06 R80.9 ALEX 03/16/19 Antiplatel et agent therapy 467162664 Z79.02 -- Patient is currently taking over-the-c ounter aspirin 81 mg one tablet daily Active or passive immunization 915368205 Z23 -- Patient still does not want to have flu shot; she will let me know when she changes her mind. Screening for malignant neoplasm of colon 196392090 Z12.11 -- Stool globin negative for occult blood on 04/30/17-- Gastroente rologist Dr. 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 Adam Cox 07/10/2017 Pre-surger y evaluation 749374255 Z01.818 all labs due 06/15/19 [id number] Mayo Wynne MD [facility] [address] [facility] [facility] [address] [address] 05/19/2020 15:52:44 05/19/2020 17:39:03 Type 2 diabetes mellitus without complication 462884608 E11.9 A1C was 9.9 on 03/16/2018 Pt didnt do any blood test or f/u since-- check lab(s) today 05/19/20 Noncomplia nce with treatment 4103111 Z91.19 pt reports she never was prescribed actos ---- although was sent 12/17/18 Hyperlipidemia 63451060 E78.5 -- check lab(s) today 05/19/20 Body mass index 25-29 - overweight 615288811 Z68.29 Depressive disorder 3548 9007 F32.9 (acute stress -- mother in Dec 2016).-- refer pt to [facility] not been taking citalopram Microalbuminuria 3193988 06 R80.9 ALEX 03/16/19 Antiplatel et agent therapy 348316920 Z79.02 -- Patient is currently taking over-the-c ounter aspirin 81 mg one tablet daily Active or passive immunization 941405939 Z23 -- Patient still does not want to have flu shot; she will let me know when she changes her mind. Screening for malignant neoplasm of colon 252604707 Z12.11 -- Stool globin negative for occult blood on 04/30/17-- Gastroente rologist Dr. 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 Adam Cox 07/10/2017 Essential hypertension 67066208 I10 -- out of meds for 1 year-- EKG done 05/19/20-- check lab(s) today 05/19/20 Hepatitis C screening 41 5283794 Z11.59 -- check lab(s) today 05/19/20 [id number] Mayo Wynne MD [place] [employer] [facility] [address] [facility] [place] ,[address] [address] 10/14/2020 16:06:39 10/14/2020 18:03:41 Type 2 diabetes mellitus without complication 192625529 E11.9 A1C was 9.9 on 03/16/2018 Pt didnt do any blood test or f/u since-- check lab(s) within 2 days from 10/14/20 Essential hypertension 40474021 I10 -- out of meds for 1 year-- EKG done 05/19/20-- check lab(s) within 2 days from 10/14/20 Hyperlipidemia 69748734 E78.5 -- check lab(s) within 2 days from 10/14/20 Body mass index 25-29 - overweight 956181305 Z68.29 -- advised weight loss; pt lost 4 # since her last visit-- pt's BMI today is 29.4 (ideal is between 20-25) Depressive disorder 3543 9007 F32.9 (acute stress -- mother in Dec 2016).-- refer pt to [facility]-- has not been taking citalopram Microalbuminuria 3830202 06 R80.9 ALEX 03/16/19 Antiplatel et agent therapy 895579115 Z79.02 -- Patient is currently taking over-the-c ounter aspirin 81 mg one tablet daily Hepatitis C screening 41 4114707 Z11.59 -- tested negative for Hep C on 05/19/20 Active or passive immunization 372620658 Z23 -- Patient still does not want to have flu shot; she will let me know when she changes her mind. Screening for malignant neoplasm of colon 940554531 Z12.11 -- Stool globin negative for occult blood on 04/30/17-- Gastroente rologist Dr. 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 Adam Cox 07/10/2017 Health Concerns Section Related Observation LastModified by Organization Detai ls LastModified Time None Recorded Concern Status LastModified by Organization Details LastModified Time None Recorded Advance Directives Directive N: Payers Insurance Date Sequence Insurance Name Policy Number Policy Spann Covered Member ID Spann Member ID Guarantor Name 04/04/2021 1 Kaybus Christian Arizmendi [id number] OI Christian Arizmendi 10/11/[address] - DOS PRIOR TO [address] - [facility] BENEFITS PLAN [id number] Christian Arizmendi [id number] Christian Arizmendi 04/04/2021 1 [employer] - OPEN ACCESS [id number] Christian Arizmendi [id number] OI Christian Arizmendi Notes Date Note Type Note Provider Name and Address Organization Details Recorded Time 04/15/2018 text/html Patient denies any headache/chest discomfort or pain/diaphoresis/bethel athing problems/nausea/vomi ting/any angina equivalent symptoms/visual changes MD Dmitriy Boston [facility] [address], [place], [address], [facility] 04/15/2018 18:50:56 12/17/2018 text/html Patient denies any headache/chest discomfort or pain/diaphoresis/bethel athing problems/nausea/vomi ting/any angina equivalent symptoms/visual changes MD Dmitriy Boston [facility] [address], [place], [address], [facility] 12/17/2018 18:18:53 05/14/2019 text/html [facility]iz [facility] 05/14/2019 18:53:21 05/19/2020 text/html Pt has multiple rescheduling, cancellation & no-shows in the last 2 years. Pt also has no done any labs for over 2 years. Pt blames her non-compliance to work hard.Pt reports that she has now retired and will be able to do all the required testings and appt. Patient denies any jaw or neck discomfort, left arm pain/left arm discomfort, chest discomfort/pain, diaphoresis, breathing symptoms/chest tightness, indigestion sx, n/v, any angina equivalent symptoms, etc. MD Dmitriy Boston [facility] [address], [place], [address], [facility] 05/19/2020 17:37:42 10/14/2020 text/html Pt comes in for DM, HTN, Chol and weight management. Pt feels well and has no c/o Patient denies any jaw or neck discomfort, left arm pain/left arm discomfort, chest discomfort/pain, diaphoresis, breathing symptoms/chest tightness, indigestion sx, n/v, any angina equivalent symptoms, etc. MD Dmitriy Boston [facility] [address], [place], [address], [facility] - [facility] 10/14/2020 17:57:31 OBGyn Episode No OBEpisode recorded.
== END 2025-02-25 13:50 | disposition home or self-care (01) ==
PROVIDERS: PCP Internal Medicine Infectious Disease; Visit Provider Internal Medicine Infectious Disease
DX: G62.9 Polyneuropathy, unspecified (principal)
CPT/HCPCS: 95886; 95910